=== PATIENT | female | born 1990 | race Caucasian/White ===

== ENCOUNTER 2019-02-08 14:52 | Inpatient (IN) ==
[2019-02-08] MEDS ORDERED: LACTATED RINGER'S 1,000 ML IV PRN ×3 (15:46→21:38)
[2019-02-08] MEDS ORDERED: OXYTOCIN 30 UNITS/500 ML BAG IV PRN ×2 (15:46→21:38)
[2019-02-08] MEDS: LACTATED RINGER'S 1,000 ML IV SCH ×2 (16:02→17:02)
[2019-02-08] MEDS ORDERED: ePHEDrine sulfate 50 MG/ML AMP ONE (16:08)
[2019-02-08] MEDS ORDERED: BUPIVACAINE 0.25% 30 ML VIAL ONE (16:08)
[2019-02-08] MEDS ORDERED: fentaNYL citrate 100 MCG/2 ML VIAL ONE (16:08)
[2019-02-08] MEDS ORDERED: fentaNYL 2MCG/ML ROPIV 1.25MG/ML 100 ML BAG EPI ONE (16:09)
[2019-02-08 16:16] LABS: Hematocrit (blood only) 37.7 % (37-47); Hemoglobin 12.7 g/dL (12.0-16.0); Mean Corpuscular Volume 86.7 fL (80-100); Mean Platelet Volume 10.4 fL (7.4-10.4); Platelet Count 202 K/uL (130-400); RDW Coefficient of Variation 13.7 % (11.5-14.5); RDW Standard Deviation 43.1 fL (36.4-46.3); Red Blood Count 4.35 M/uL (4.2-5.4); White Blood Count 13.64 K/uL (4.8-10.8)
[2019-02-08 16:23] LABS: Mean Corpuscular Hgb Conc 33.7 g/dL (32-36)
--- NOTE | 2019-02-08 16:34 | Anesthesiology Consultation ---
Date of Service February 08, 2019 Assessment & Plan Chart Review Chart Review: Patient NOT seen in Pre Admission Testing and Acceptable Risk for Labor Epidural Consults Requested none ASA ASA2 Proposed Anesthesia Anesthesia Type: Labor Epidural and CSE Risk / Benefits Reviewed With: PT / POA / Parent / Guardian, Accepts Plan and Informed Consent Obtained NPO Date Last Intake of Fluids: 02/08/19 Time Last Intake of Fluids: 14:00 Date Last Intake of Solids: 02/08/19 Time Last Intake of Solids: 13:30 History Height/Weight Height: 5 ft 2 in Weight: 84.368 kg Past Anesthesia History No Hx of Anesthesia Complications and No Family Hx of Anesthesia Complications History of PONV No Motion Sickness Screening History of Motion Sickness: No Social History Smoking Status: Never smoker Do You Dip or Chew Tobacco: No Hx Alcohol Use: No Hx Substance Use: No substance use type: does not use Exercise / Class Metabolic Activity II 4-5 Yardwork/Stairs/Walk up hill Review of Systems no chest pain or sob Physical Exam Vital Signs Last Vital Signs Temp 36.6 C 02/08/19 15:16 Pulse 91 H 02/08/19 16:30 Resp 18 02/08/19 15:16 BP 125/83 02/08/19 16:17 Pulse Ox 100 02/08/19 16:30 ENMT Mouth: no TMJ abnormality Thyromental Distance: > or= 3.5 Finger Breadths Mallampati Class: II Neck normal visual inspection Respiratory normal respiratory effort Auscultation: lungs clear to auscultation bilaterally Cardiovascular Rate/Rhythm: regular rate and regular rhythm Musculoskeletal Spine: normal cervical ROM Neurologic moves all extremities Psychiatric Orientation: alert and oriented x 3 Testing Electrocardiogram Findings: + NSR @ Laboratory Results 02/08/19 16:03
[2019-02-08] MEDS ORDERED: NALOXONE HCL 0.4 MG/1 ML VIAL/CARP IV PRN (16:50)
[2019-02-08] MEDS ORDERED: NALBUPHINE HCL INJ 10 MG/ML AMP IV PRN (16:50)
[2019-02-08] MEDS ORDERED: fentaNYL 2MCG/ML ROPIV 1.25MG/ML 100 ML BAG EPI PRN (16:50)
[2019-02-08] MEDS ORDERED: DiphenhydrAMINE HCL 50 MG/ML VIAL IV PRN (16:50)
[2019-02-08] MEDS ORDERED: ePHEDrine sulfate 50 MG/ML AMP IV PRN (16:50)
[2019-02-08] MEDS ORDERED: NALOXONE HCL 1 MG in SODIUM CHLORIDE 0.9% 1000ML 1,000 ML IV PRN (16:50)
[2019-02-08] MEDS ORDERED: ONDANSETRON INJ 2 MG/ML 2 ML VIAL IV PRN (16:50)
--- NOTE | 2019-02-08 17:54 | History & Physical Report ---
Date of Service February 08, 2019 Assessment & Plan (1) 40 weeks gestation of : (2) Normal labor: already has epidural. fetus category one. expectant management for now. pit as indicated. Anticipate . History of Present Illness Chief Complaint: contractions and lof Primary Care Provider: NO PCP Patient is a 28yowf with iup at 40 1/7 weeks who presents complaining of lof, clear, at about 2pm and contractions. no vb. +fm. uncomplicated labs--A+/ab-/papnl/ri/bharath i/rprnr/hiv neg/gc/ct-/16 week gtt 147, nl 2 hr gtt/ panorama low risk/afp neg/28 week 2 hr nl/ gbs neg Allergies Allergy/AdvReac Type Severity Reaction Status Date / Time No Known Allergies Allergy Unverified 02/08/19 16:58 Home Medications Home Medications Medication Instructions Recorded Confirmed Type vit-iron fum-folic ac 1 tab PO DAILY 02/08/19 02/08/19 History [ Vitamin] Patient History Medical History H/O varicella Surgical History No history of previous surgery Family History Grandfather (Paternal) Family history of diabetes mellitus Grandmother (Maternal) Family history of diabetes mellitus Social History Preferred Language: Chinese Communication Ability: Effective Surgical Aides Teacher Required: No Beliefs That Will Affect Care: None marital status: Current Living Situation: Spouse Other Information That Helps Us Care for You: No Feels Safe at Home: Yes Safety Concerns: Feels Safe At This Time Smoking Status: Never smoker Do You Dip or Chew Tobacco: No Second Hand Exposure: No Tobacco Cessation Education Requested by Patient: No Hx Alcohol Use: No Hx Substance Use: No 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 no std, no abnl paps Review of Systems All systems reviewed & are unremarkable except as noted in HPI & below Physical Exam Constitutional: WD/WN, vitals as above Gastrointestinal (Abdomen): soft, nt, nd Genitourinary: cx--/-2 on admission, just checked after epidural and 4-/-1 toco--q2min efm--145 with mod variability, accels to 150s, no decels Results & Data Vital Signs (Past 12 Hours) Vital Signs Temp Pulse Resp BP Pulse Ox 02/08/19 17:45 93 H 100 02/08/19 17:40 94 H 99 02/08/19 17:35 89 99 02/08/19 17:34 93 H 111/59 L 02/08/19 17:30 92 H 100 02/08/19 17:25 89 100 02/08/19 17:20 86 94 02/08/19 17:18 93 H 108/65 94 02/08/19 17:15 88 100 02/08/19 17:14 82 109/60 02/08/19 17:10 93 H 98 02/08/19 17:05 94 H 100 02/08/19 17:04 90 104/59 L 02/08/19 17:02 91 H 103/55 L 02/08/19 17:00 86 100 02/08/19 16:59 87 108/58 L 02/08/19 16:56 85 104/56 L 02/08/19 16:55 94 H 100 02/08/19 16:53 86 106/55 L 02/08/19 16:51 88 103/59 L 02/08/19 16:50 95 H 98/59 L 100 02/08/19 16:49 88 100/59 L 02/08/19 16:47 74 101/54 L 02/08/19 16:46 82 129/72 02/08/19 16:45 87 100 02/08/19 16:44 86 126/68 02/08/19 16:43 86 129/78 02/08/19 16:40 92 H 100 02/08/19 16:35 92 H 100 02/08/19 16:30 91 H 100 02/08/19 16:25 91 H 100 02/08/19 16:20 84 100 02/08/19 16:17 82 125/83 02/08/19 15:16 98 F 18 02/08/19 15:03 108 H 129/91
--- NOTE | 2019-02-08 19:41 | Labor Progress Brief Note ---
Date of Service February 08, 2019 Subjective Comfortable, no pressure Genitourinary (Female): + problem reported Assessment & Plan (1) 40 weeks gestation of : (2) Normal labor: fetus category one. expectant management for now. pit as indicated. Anticipate . Physical Exam Constitutional: WD/WN, vitals as above Gastrointestinal (Abdomen): cx--ant lip/0 toco--q2min efm--155 wtih mod variability, accels to 170s, no decels Results & Data Vital Signs (Past 12 Hours) Vital Signs Temp Pulse Resp BP Pulse Ox 02/08/19 19:36 90 137/77 02/08/19 19:35 99 H 100 02/08/19 19:30 92 H 100 02/08/19 19:29 98.6 F 18 02/08/19 19:25 93 H 99 02/08/19 19:20 99 H 100 02/08/19 19:19 94 H 140/80 02/08/19 19:15 98 H 100 02/08/19 19:10 97 H 100 02/08/19 19:09 93 H 91 02/08/19 19:05 102 H 100 02/08/19 19:04 90 131/72 02/08/19 19:00 96 H 100 02/08/19 18:55 96 H 100 02/08/19 18:50 94 H 135/90 100 02/08/19 18:45 94 H 100 02/08/19 18:40 98 H 100 02/08/19 18:35 95 H 100 02/08/19 18:34 99 H 138/83 02/08/19 18:30 82 100 02/08/19 18:25 96 H 100 02/08/19 18:20 96 H 119/68 100 02/08/19 18:16 93 H 112/74 02/08/19 18:15 94 H 100 02/08/19 18:11 86 90 02/08/19 18:10 85 100 02/08/19 18:05 90 97 02/08/19 18:00 97 H 18 100 02/08/19 17:55 101 H 100 02/08/19 17:50 115 H 100 02/08/19 17:49 93 H 116/63 02/08/19 17:45 93 H 100 02/08/19 17:40 94 H 99 02/08/19 17:35 89 99 02/08/19 17:34 93 H 111/59 L 02/08/19 17:30 92 H 20 100 02/08/19 17:25 89 100 02/08/19 17:20 86 94 02/08/19 17:18 93 H 108/65 94 02/08/19 17:15 88 100 02/08/19 17:14 82 109/60 02/08/19 17:10 93 H 98 02/08/19 17:05 94 H 100 02/08/19 17:04 90 104/59 L 02/08/19 17:02 91 H 103/55 L 02/08/19 17:00 86 18 100 02/08/19 16:59 87 108/58 L 02/08/19 16:56 85 104/56 L 02/08/19 16:55 94 H 100 02/08/19 16:53 86 106/55 L 02/08/19 16:51 88 103/59 L 02/08/19 16:50 95 H 98/59 L 100 02/08/19 16:49 88 100/59 L 02/08/19 16:47 74 101/54 L 02/08/19 16:46 82 129/72 02/08/19 16:45 87 100 02/08/19 16:44 86 126/68 02/08/19 16:43 86 129/78 02/08/19 16:40 92 H 100 02/08/19 16:35 92 H 100 02/08/19 16:30 97.3 F L 91 H 20 100 02/08/19 16:25 91 H 100 02/08/19 16:20 84 100 02/08/19 16:17 82 125/83 02/08/19 15:16 98 F 18 02/08/19 15:03 108 H 129/91 02/08/19 15:01 98.1 F 18
[2019-02-08] MEDS ORDERED: IBUPROFEN 600 MG TAB PO PRN (22:14)
[2019-02-08] MEDS ORDERED: OXYCODONE/ACETAMINOPHEN 5mg/325mg TAB PO PRN (22:14)
[2019-02-09] MEDS ORDERED: HYDROCORTISONE ACETATE 25 MG SUPP PR PRN (02:55)
[2019-02-09] MEDS ORDERED: ACETAMINOPHEN 325 MG TAB PO PRN (02:55)
[2019-02-09] MEDS ORDERED: SUPERCREAM 0.870% 15 GM JAR EXT PRN (02:55)
[2019-02-09] MEDS ORDERED: BENZOCAINE 20% AER SPR 82.5 GM CAN EXT PRN (02:55)
[2019-02-09] MEDS ORDERED: OXYTOCIN 30 UNITS/500 ML BAG IV PRN (02:55)
[2019-02-09] MEDS ORDERED: BISACODYL 10 MG SUPP PR PRN (02:55)
--- NOTE | 2019-02-09 03:00 | Delivery Summary ---
DATE OF OPERATION: 02/08/2019 ADMISSION DIAGNOSES: 1. Intrauterine at 40+ weeks. 2. Active labor with rupture of membranes. POSTOPERATIVE DIAGNOSES: 1. Intrauterine at 40+ weeks. 2. Active labor with rupture of membranes. PROCEDURES: 1. Epidural anesthesia. 2. Normal spontaneous vaginal delivery. 3. Bilateral labia and first-degree vaginal laceration with repair. SURGEON: Linnea Adan MD ANESTHESIA: Epidural. ESTIMATED BLOOD LOSS: 300 mL. DESCRIPTION OF PROCEDURE: The patient presented to labor and delivery, grossly ruptured for clear fluid and active labor at 3+ cm dilated. She underwent an epidural anesthetic and progressed spontaneously to complete-complete and +2 station. She pushed for a little over an hour to deliver a viable female in HUBERT presentation. There was no nuchal cord. The nose and mouth were bulb suctioned. The rest of the infant was then delivered without difficulty. The infant's nose and mouth were again bulb suctioned and the was placed on the maternal abdomen for drying and attention. Cord was clamped and cut at 1 minute of life. Placenta was delivered spontaneously intact with a 3-vessel cord. Cord blood was obtained. Bilateral labial lacerations were repaired with several interrupted sutures of 4-0 and 3-0 Vicryl and a first-degree vaginal laceration was repaired with 3-0 Vicryl in normal standard fashion. Cervix, sulci, rectum, and perineum were examined and found to be intact. Estimated blood loss 300 mL. Hemostasis was obtained with dilute Pitocin and fundal massage. Apgars were 8 and 9. Mother and baby doing well at the end of the delivery. I attest to the content of the Intraoperative Record and any orders documented therein. Any exception s are noted below.
[2019-02-09 06:53] LABS: Hematocrit (blood only) 34.2 % (37-47); Hemoglobin 11.2 g/dL (12.0-16.0); Mean Corpuscular Hgb Conc 32.7 g/dL (32-36); Mean Platelet Volume 10.5 fL (7.4-10.4); Platelet Count 175 K/uL (130-400); RDW Coefficient of Variation 14.1 % (11.5-14.5); RDW Standard Deviation 44.8 fL (36.4-46.3); Red Blood Count 3.93 M/uL (4.2-5.4); White Blood Count 15.35 K/uL (4.8-10.8)
--- NOTE | 2019-02-09 06:57 | Obstetrical Progress Note ---
Date of Service <Bethany Turner MD - Last Filed: 02/09/19 07:01> February 09, 2019 Assessment & Plan <Bethany Turner MD - Last Filed: 02/09/19 07:01> (1) (spontaneous vaginal delivery): 28yo with at 40.1 weeks. PPD #1 -Routine care -ambulation encouraged -Pain control -Doing well Day #:: 1 Subjective <Bethany Turner MD - Last Filed: 02/09/19 07:01> Ambulation: ambulating normally Voiding: no voiding problems Diet Tolerance:: regular diet Lochia:: Moderate Feeding Type:: breast feeding Current Pain Level(1-10): 1 Respiratory: no dyspnea Cardiovascular: + edema; no chest pain, no palpitations, no lightheadedness and no calf pain Gastrointestinal: no nausea and no vomiting Genitourinary (female): no dysuria Neurologic: no headache(s) Physical Exam <Bethany Turner MD - Last Filed: 02/09/19 07:01> Vital Signs (Past 24 Hours) Last Vital Signs Temp 36.9 C 02/09/19 04:55 Pulse 87 02/09/19 04:55 Resp 18 02/09/19 04:55 BP 121/78 02/09/19 04:55 Pulse Ox 99 02/08/19 22:05 Respiratory normal respiratory effort, lungs clear to auscultation Cardiovascular Rate/Rhythm: regular rate and regular rhythm Extremities: + pedal edema; no calf tenderness Genitourinary OB Exam Abdomen: + fundal height Fundus: + firm Results & Data <Bethany Turner MD - Last Filed: 02/09/19 07:01> Laboratory Results Laboratory Results - last 24 hr 02/08/19 02/09/19 16:03 06:18 WBC 13.64 H 15.35 H RBC 4.35 3.93 L Hgb 12.7 11.2 L Hct 37.7 34.2 L MCV 86.7 87.0 MCH 29.2 28.5 MCHC 33.7 32.7 RDW Std Deviation 43.1 44.8 RDW Coeff of Kristina 13.7 14.1 Plt Count 202 175 MPV 10.4 10.5 H Medications Administered Home Medications vit-iron fum-folic ac [ Vitamin] 1 tab PO DAILY 02/08/19 [History Confirmed 02/08/19] Active Medications Acetaminophen (Tylenol) 650 mg PO Q6H PRN PRN Reason: Pain/SANCHEZ/Fever Stop: 03/11/19 02:54 Benzocaine (Dermoplast Pain Relieving [place]) 1 appln EXT PRN PRN PRN Reason: Perineal Discomfort Stop: 03/11/19 02:54 Bisacodyl (Dulcolax) 5 mg PO 1999 [facility] Stop: 02/09/19 20:01 Bisacodyl (Dulcolax) 10 mg CO DAILY PRN PRN Reason: No BM on 2nd post- day Stop: 03/11/19 02:54 Cocaine HCl (Supercream 0.870%) 1 gm EXT BID PRN PRN Reason: Hemorrhoidal Inflammation Stop: 02/23/19 02:54 Diphtheria/Pertussis/Tetanus Vacc (Adacel) 0.5 ml IM .ONCE ONE Stop: 02/10/19 09:01 Docusate Sodium (Colace) 100 mg PO BID [facility] Stop: 03/11/19 08:59 Hydrocortisone (Anusol Hc) 25 mg CO BID PRN PRN Reason: Hemorrhoidal Inflammation Stop: 03/11/19 02:54 Oxytocin (Pitocin) 30 units in 500 mls @ 333.333 mls/hr IV .Q1H30M PRN; Protocol PRN Reason: BLEEDING CONTROL Stop: 03/11/19 02:54 Ibuprofen (Motrin) 600 mg PO Q4H PRN PRN Reason: Pain/SANCHEZ/Cramping/Fever Stop: 03/10/19 22:13 Oxycodone/Acetaminophen (Percocet 5mg/325mg) 1 tab PO Q4H PRN PRN Reason: Pain not relieved by... Stop: 02/22/19 22:13 Prenat Multivit/[place]/Iron/Folic Ac ( Vitamin) 1 tab PO QAM [facility] Stop: 03/11/19 08:59 <Linnea Adan MD, FACOG - Last Filed: 02/09/19 07:11> Co-Signing Physician Notes Resident Physician Supervision Note: I interviewed and examined the patient. Discussed with Dr. Turner and agree with findings and plan as documented in the note. Any exceptions or clarifications are listed here: Doing well. Fundus firm, 1 below u. Routine PP care. Documented By: Linnea Adan MD, FACOG
--- NOTE | 2019-02-09 08:59 | Anesthesia Procedure Note ---
Date of Service February 09, 2019 Anesthesia Post Epidural Note Vital Signs Vital Signs: Temp Pulse Resp BP Pulse Ox 36.9 C 87 18 121/78 99 02/09/19 04:55 02/09/19 04:55 02/09/19 04:55 02/09/19 04:55 02/08/19 22:05 Notes Mental Status: alert / awake / arousable Patient Amnestic to Procedure: Yes Nausea / Vomiting: adequately controlled Pain: adequately controlled Airway Patency, RR, SpO2: stable & adequate BP & HR: stable & adequate Hydration State: stable & adequate Anesthetic Complications: no major complications apparent
[2019-02-09] MEDS: PRENATAL VITAMIN 1 TAB PO SCH (09:59)
[2019-02-09] MEDS: DOCUSATE SODIUM 100 MG CAP PO SCH ×2 (10:00→21:20)
[2019-02-09] MEDS ORDERED: BISACODYL 5 MG TABEC PO SCH (20:00)
[2019-02-10 06:52] LABS: Hemoglobin 11.4 g/dL (12.0-16.0)
--- NOTE | 2019-02-10 07:54 | Obstetrical Progress Note ---
Date of Service <Bethany Turner MD - Last Filed: 02/10/19 08:12> February 10, 2019 Assessment & Plan <Bethany Turner MD - Last Filed: 02/10/19 08:12> (1) (spontaneous vaginal delivery): 28yo with at 40.1 weeks. PPD #2 -Doing well -Discharge today, discharge instructions reviewed. Subjective <Bethany Turner MD - Last Filed: 02/10/19 08:12> Ambulation: ambulating normally Voiding: no voiding problems Diet Tolerance:: regular diet Lochia:: Small Feeding Type:: breast feeding Current Pain Level(1-10): 1 Eyes: no problem reported Respiratory: no dyspnea Cardiovascular: no chest pain, no palpitations, no lightheadedness and no calf pain Gastrointestinal: no nausea and no vomiting Neurologic: no headache(s) Physical Exam <Bethany Turner MD - Last Filed: 02/10/19 08:12> Vital Signs (Past 24 Hours) Last Vital Signs Temp 36.7 C 02/10/19 07:30 Pulse 88 02/10/19 07:30 Resp 20 02/10/19 07:30 BP 116/77 02/10/19 07:30 Pulse Ox 98 02/09/19 12:10 Respiratory normal respiratory effort, lungs clear to auscultation Cardiovascular Rate/Rhythm: regular rate and regular rhythm Genitourinary OB Exam Abdomen: + fundal height Fundus: + firm and + relation to umbilicus (at umbilicus) Results & Data <Bethany Turner MD - Last Filed: 02/10/19 08:12> Laboratory Results Laboratory Results - last 24 hr 02/10/19 06:11 Hgb 11.4 L Hct 35.0 L Medications Administered Home Medications vit-iron fum-folic ac [ Vitamin] 1 tab PO DAILY 02/08/19 [History Confirmed 02/08/19] Active Medications Acetaminophen (Tylenol) 650 mg PO Q6H PRN PRN Reason: Pain/SANCHEZ/Fever Stop: 03/11/19 02:54 Benzocaine (Dermoplast Pain Relieving [place]) 1 appln EXT PRN PRN PRN Reason: Perineal Discomfort Stop: 03/11/19 02:54 Bisacodyl (Dulcolax) 10 mg MD DAILY PRN PRN Reason: No BM on 2nd post- day Stop: 03/11/19 02:54 Cocaine HCl (Supercream 0.870%) 1 gm EXT BID PRN PRN Reason: Hemorrhoidal Inflammation Stop: 02/23/19 02:54 Diphtheria/Pertussis/Tetanus Vacc (Adacel) 0.5 ml IM .ONCE ONE Stop: 02/10/19 09:01 Docusate Sodium (Colace) 100 mg PO BID [facility] Stop: 03/11/19 08:59 Last Admin: 02/09/19 21:20 Dose: 100 mg Documented by: Hydrocortisone (Anusol Hc) 25 mg MD BID PRN PRN Reason: Hemorrhoidal Inflammation Stop: 03/11/19 02:54 Oxytocin (Pitocin) 30 units in 500 mls @ 333.333 mls/hr IV .Q1H30M PRN; Protocol PRN Reason: BLEEDING CONTROL Stop: 03/11/19 02:54 Ibuprofen (Motrin) 600 mg PO Q4H PRN PRN Reason: Pain/SANCHEZ/Cramping/Fever Stop: 03/10/19 22:13 Last Admin: 02/09/19 17:48 Dose: 600 mg Documented by: Oxycodone/Acetaminophen (Percocet 5mg/325mg) 1 tab PO Q4H PRN PRN Reason: Pain not relieved by... Stop: 02/22/19 22:13 Prenat Multivit/[place]/Iron/Folic Ac ( Vitamin) 1 tab PO QAM [facility] Stop: 03/11/19 08:59 Last Admin: 02/09/19 09:59 Dose: 1 tab Documented by: <Twila Ramsey MD, FACOG - Last Filed: 02/10/19 08:14> Co-Signing Physician Notes Resident Physician Supervision Note: I interviewed and examined the patient. Discussed with Dr. Sims and agree with findings and plan as documented in the note. Any exceptions or clarifications are listed here: [None] Documented By: Twila Ramsey MD, FACOG
[2019-02-10] MEDS: DOCUSATE SODIUM 100 MG CAP PO SCH (08:37)
[2019-02-10] MEDS: PRENATAL VITAMIN 1 TAB PO SCH (08:37)
[2019-02-10] MEDS ORDERED: DIPHTHERIA/TETANUS/PERTUSSIS 0.5 ML SYR/VIAL IM ONE (09:00)
--- OUTSIDE RECORDS SUMMARY | 2019-02-12 21:37 | External Medical Summary | Continuity of Care Document ---
:1990 Author Name Bacilio Blackburn, Provider Address Unavailable Unavailable , Care Team Providers Name Role Phone Antionette Blackburn, Linnea Chi Unavailable [email or web address] [email or web address], UNKNOWN Unavailable Unavailable Unavailable Unavailable Unavailable Problems Supervision of normal first in third trimester (V2 2.0) (Z34.03) Allergies and Adverse Reactions No Known Drug Allergies (Allergy) Medications TABS Refills: 0 Procedures Non-stress test Date: 06-Feb-2019 History of no history of surgery Status: Completed Immunizations Tdap (Adacel) On: 17-Nov-2018 9:56 Lot #: [id number], [employer] Family History Mother Family history of factor V Leiden mutation (V18.3) (Z83.2) S tatus: Active Family history of hypertension (V17.49) (Z82.49) Status: Act tsering Grandmother Family history of diabetes mellitus (V18.0) (Z83.3) Status: Active Grandfather Family history of diabetes mellitus (V18.0) (Z83.3) Status: Active Sister Family history of deep venous thrombosis (V17.49) (Z82.49) S tatus: Active Plan of Treatment Planned Observations Planned Goals not documented Results Group B Strep/CHIN 15-Jan-2019 11:55 GRP B BETA STREP CULTURE - CHIN ORDERED P ROCEDURE : GRP B Beta Strep Culture -CHIN; Speciment : V aginal/Rectal Source of Specimen: Vaginal/ Rectal Group B St rep Culture : No Group B Strep isolated Vital Signs 06-Feb-2019 11:41 Systolic 124 mm[Hg] Diastolic 74 mm[Hg] Height 62 in BSA Calculated 1.85 m2 BMI Calculated 33.98 kg/m2 Weight 185.8 lb 29-Jan-2019 14:31 Systolic 118 mm[Hg] Diastolic 84 mm[Hg] Height 62 in BSA Calculated 1.84 m2 BMI Calculated 33.51 kg/m2 Weight 183.2 lb 23-Jan-2019 11:42 Systolic 122 mm[Hg] Diastolic 84 mm[Hg] Height 62 in BSA Calculated 1.83 m2 BMI Calculated 32.95 kg/m2 Weight 180.125 lb 15-Jan-2019 8:58 Systolic 126 mm[Hg] Diastolic 84 mm[Hg] Height 62 in BSA Calculated 1.81 m2 BMI Calculated 32.3 kg/m2 Weight 176.6 lb Encounters Appointment; Kate Young M.D. 06-Feb-2019 11:50 Encounter Diagnosis: Problem not documented Appointment; Kate Young M.D. 29-Jan-2019 14:30 Encounter Diagnosis: Problem not documented Appointment; Kd Delcid M.D. 23-Jan-2019 11:50 Encounter Diagnosis: Problem not documented Appointment; Anatoly Foreman M.D. 15-Jan-2019 9:00 Encounter Diagnosis: Problem not documented Appointment; Anatoly Foreman M.D. 29-Dec-2018 8:20 Encounter Diagnosis: Problem not documented Appointment; Nakia Gonzalez M.D. 08-Dec-2018 13:10 Encounter Diagnosis: Problem not documented Appointment; Twila Ramsey M.D. 17-Nov-2018 9:20 Encounter Diagnosis: Problem not documented Appointment; Twila Ramsey M.D. 20-Oct-2018 11:20 Encounter Diagnosis: Problem not documented Appointment; OBANNELISE ADKINS1, Ultrasound 20-Oct-2018 10:30 Encounter Diagnosis: Problem not documented Appointment; Anatoly Foreman M.D. 15-Sep-2018 9:10 Encounter Diagnosis: Problem not documented Appointment; OBGYN SC2, Ultrasound 15-Sep-2018 8:05 Encounter Diagnosis: Problem not documented Appointment; OB SC1, Procedure Rm 17-Aug-2018 8:20 Encounter Diagnosis: Problem not documented Appointment; Comfort Mays DO 17-Aug-2018 8:20 Encounter Diagnosis: Problem not documented Appointment; OB SC1, Nursing Station 11-Aug-2018 9:45 Encounter Diagnosis: Problem not documented Appointment; Steph Tran CRNP 02-Aug-2018 13:30 Encounter Diagnosis: Problem not documented Appointment; [id number], Nurse 02-Aug-2018 13:00 Encounter Diagnosis: Problem not documented
== END 2019-02-10 14:10 | disposition home or self-care (01) | DRG 807 ==
LOC: OPB 14:52 → 4S1 14:55 → 4S2 02-09 00:52

== ENCOUNTER 2021-03-02 05:18 | Inpatient (IN) ==
[2021-03-02] MEDS ORDERED: PENICILLIN G POTASSIUM 6 MU in DEXTROSE 5% 250 ML IV STA (05:45)
[2021-03-02] MEDS ORDERED: PENICILLIN G POTASSIUM 3 MU in DEXTROSE 5% 100 ML IV PRN (05:45)
[2021-03-02] MEDS ORDERED: OXYTOCIN 30 UNITS/500 ML BAG IV PRN ×2 (05:45→09:02)
[2021-03-02] MEDS ORDERED: LACTATED RINGER'S 1,000 ML IV PRN (05:45)
[2021-03-02 06:01] LABS: Hematocrit (blood only) 39.7 % (37-47); Hemoglobin 12.9 g/dL (12.0-16.0); Mean Corpuscular Hemoglobin 29.7 pg (25-34); Mean Corpuscular Hgb Conc 32.5 g/dL (32-36); Mean Corpuscular Volume 91.3 fL (80-100); Mean Platelet Volume 10.2 fL (7.4-10.4); Platelet Count 196 K/uL (130-400); RDW Coefficient of Variation 13.7 % (11.5-14.5); RDW Standard Deviation 45.4 fL (36.4-46.3); Red Blood Count 4.35 M/uL (4.2-5.4); White Blood Count 12.05 K/uL (4.8-10.8)
--- NOTE | 2021-03-02 06:03 | History & Physical Report ---
Date of Service March 02, 2021 Assessment & Plan (1) Active labor at term: (2) PUPP (pruritic urticarial papules and plaques of ): (3) Group B streptococcal carriage complicating : admit, iv, labs. fhts categ 1. begin pcn for gbs pos. expectant mgmt. epidural when desires. will provide topical steroid for rash. per chart, desires to restart lexapro pp. Admission and Anticipated Discharge Date Admission Date: March 02, 2021 History of Present Illness Chief Complaint: regular ctx. Primary Care Provider: Laura Howard MD 30yo at 38+weeks ega presents to L&D with regular ctx. Contractions overnight increasing in intensity. No rom. No vb. +FM. Has new onset rash on upper thigh and abdomen. Pruritic PNC c/b 1. GBS pos 2. PUPPS 3. history of depression, weaned off lexapro, plans to return to lexapro pp PNL rh pos, Ri, gbs pos OBH: x 1 GYNH: nl paps. Allergies Allergy/AdvReac Type Severity Reaction Status Date / Time No Known Allergies Allergy Verified 03/02/21 05:30 Home Medications Medication Instructions Recorded Confirmed Type Vitamin 1 tab PO DAILY 02/08/19 03/02/21 History breast pump #1 ea 02/24/21 02/24/21 Rx Patient History Medical History (Updated 03/02/21 @ 06:19 by Nakia Gonzalez MD, FACOG) Anxiety and depression Cervical cancer screening H/O varicella Vaginal delivery Surgical History No history of previous surgery Family History Grandfather (Paternal) Family history of diabetes mellitus Grandmother (Maternal) Family history of diabetes mellitus Social History (Updated 08/01/20 @ 11:52 by Yesenia Minor) Smoking Status: Never smoker Second Hand Exposure: No; Hx Alcohol Use: No Hx Substance Use: No Preferred Language: Albanian Communication Ability: Effective Food Order Delivery Runner Required: No Beliefs That Will Affect Care: None marital status: marital status details: Dani (30) [phone] Current Living Situation: Spouse and Family Current Living Situation Comment: patient's in the process of building a home; currently in [facility] current occupational status: employed 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 @ [employer] Other Information That Helps Us Care for You: No Feels Safe at Home: Yes Safety Concerns: Feels Safe At This Time Assistive Devices: None Physical Exam Constitutional: WD/WN, vitals as above Respiratory: normal respiratory effort, lungs clear to auscultation Cardiovascular: Rate/Rhythm: regular rate and regular rhythm Gastrointestinal (Abdomen): soft gravid nt EFW 7.5# Musculoskeletal: no edema nontender calves Skin: + rash (papular rash on abdomen and upper thigh) Neurologic: grossly normal Psychiatric: A+Ox3, euthymic affect Genitourinary: Manual OB Exam: + cervical dilation 5 cm, + cervical effacement 100% and + station -2 OB Exam Monitor Tracing: + external FHT monitor used (130 mod variability), + external uterine monitor used (q3), + category I and + normal FHT variability cervical exam per nurse Results & Data ([facility]) Vital Signs (Past 12 Hours) Vital Signs Pulse BP 03/02/21 05:28 81 108/68 Coding Level of Care Code None Diagnoses Active labor at term PUPP (pruritic urticarial papules and plaques of ) O26.86 Group B streptococcal carriage complicating O99.820
[2021-03-02] MEDS ORDERED: HYDROCORTISONE VAL 0.2% CRM 15GM TUBE EXT PRN (06:20)
[2021-03-02] MEDS ORDERED: SODIUM CHLORIDE 0.9% INJ 10 ML VIAL ONE (06:50)
[2021-03-02] MEDS ORDERED: BUPIVACAINE 0.25% 30 ML VIAL ONE (06:50)
[2021-03-02] MEDS ORDERED: ePHEDrine sulfate 50 MG/ML AMP ONE (06:50)
[2021-03-02] MEDS ORDERED: fentaNYL citrate 100 MCG/2 ML VIAL ONE (06:50)
[2021-03-02] MEDS ORDERED: fentaNYL 2MCG/ML ROPIVACAINE 1.25MG/ML 100 ML BAG EPI ONE (06:51)
[2021-03-02] MEDS ORDERED: NALOXONE HCL 0.4 MG/1 ML VIAL/CARP IV PRN (06:54)
[2021-03-02] MEDS ORDERED: ONDANSETRON INJ 2 MG/ML 2 ML VIAL IV PRN (06:54)
[2021-03-02] MEDS ORDERED: NALOXONE HCL 1 MG in SODIUM CHLORIDE 0.9% 1000ML 1,000 ML IV PRN (06:54)
[2021-03-02] MEDS ORDERED: ePHEDrine sulfate 50 MG/ML AMP IV PRN (06:54)
[2021-03-02] MEDS ORDERED: diphenhydrAMINE 50 MG/ML VIAL IV PRN (06:54)
[2021-03-02] MEDS ORDERED: fentaNYL 2MCG/ML ROPIVACAINE 1.25MG/ML 100 ML BAG EPI PRN (06:54)
--- NOTE | 2021-03-02 06:59 | Anesthesiology Consultation ---
Date of Service March 02, 2021 Assessment & Plan (1) Encounter for pre-operative examination: Chart Review Chart Review: Acceptable Risk for Labor Epidural Consults Requested none ASA ASA2 Proposed Anesthesia Anesthesia Type: Labor Epidural Risk / Benefits Reviewed With: PT / POA / Parent / Guardian, Accepts Plan and Informed Consent Obtained History Height/Weight Height: 5 ft 2 in Weight: 80.286 kg Allergies Allergy/AdvReac Type Severity Reaction Status Date / Time No Known Allergies Allergy Verified 03/02/21 05:30 Medications Home Medications Medication Instructions Recorded Confirmed Last Taken Vitamin 1 tab PO DAILY 02/08/19 03/02/21 03/01/21 08:30 breast pump #1 ea 02/24/21 02/24/21 Unknown Active Medications Generic Name Dose Route Start Last Admin Trade Name Freq PRN Reason Stop Dose Admin Lactated Ringer's 1,000 mls @ 125 mls/hr 03/02/21 05:45 03/02/21 06:30 Lr IV 03/04/21 05:44 125 mls/hr .Q8H PRN Infusion L&D Protocol Protocol Past Medical History Medical History Anxiety and depression Cervical cancer screening H/O varicella Vaginal delivery Exercise / Class Metabolic Activity II 4-5 Yardwork/Stairs/Walk up hill Past Family History Family History Grandfather (Paternal) Family history of diabetes mellitus Grandmother (Maternal) Family history of diabetes mellitus Past Surgical History Surgical History No history of previous surgery Past Anesthesia History No Hx of Anesthesia Complications and No Family Hx of Anesthesia Complications History of PONV No Hx of PONV and No Hx of Motion Sickness Social History Smoking Status: Never smoker Hx Alcohol Use: No Hx Substance Use: No substance use type: does not use Physical Exam Vital Signs Last Vital Signs Temp 98.1 F 03/02/21 05:32 Pulse 81 03/02/21 05:32 Resp 18 03/02/21 05:32 BP 108/68 03/02/21 05:32 ENMT Mouth: no dentition abnormality Thyromental Distance: > or= 3.5 Finger Breadths Mallampati Class: II Neck normal visual inspection Respiratory normal respiratory effort Auscultation: lungs clear to auscultation bilaterally Cardiovascular Rate/Rhythm: regular rate and regular rhythm Testing Laboratory Results 03/02/21 05:53
--- NOTE | 2021-03-02 08:44 | Delivery Summary ---
Vaginal Delivery Summary Date of Service March 02, 2021 Vaginal Delivery Summary The patient dilated to complete and pushed to deliver a viable female Apgars 9 and 9 via over intact perineum. Mouth and nose bulb suctioned at perineum. Shoulders and body delivered with ease. Infant was vigorous and crying at . Cord clamped at 30 seconds of life and infant to maternal abdomen where the cord was then doubly clamped and cut. Placenta delivered spontaneously and intact, three-vessel cord. Hemostasis achieved with dilute pitocin and uterine massage. Vaginal laceration reapproximated with 3-0 vicryl in one interrupted stitch. Cervix and sulci intact. EBL 300 cc. Mother and baby stable recovery. [facility] Vaginal Delivery Charge Delivery Type Details:
[2021-03-02] MEDS ORDERED: NON-FORMULARY MEDICATION (Prenatal Vit-Iron Fum-Folic Ac [Prenatal Vitamin] 27 mg iron- 0. PO SCH (09:02)
[2021-03-02] MEDS ORDERED: ACETAMINOPHEN 325 MG TAB PO PRN (09:02)
[2021-03-02] MEDS ORDERED: DIPHTHERIA/TETANUS/PERTUSSIS 0.5 ML SYR/VIAL IM ONE (09:02)
[2021-03-02] MEDS ORDERED: HYDROCORTISONE ACETATE 25 MG SUPP PR PRN (09:02)
[2021-03-02] MEDS ORDERED: oxyCODONE/ACETAMINOPHEN 5mg/325mg TAB PO PRN (09:02)
[2021-03-02] MEDS ORDERED: BENZOCAINE 20% AER SPR 82.5 GM CAN EXT PRN (09:02)
[2021-03-02] MEDS ORDERED: bisacodyL 10 MG SUPP PR PRN (09:02)
[2021-03-02] MEDS ORDERED: SUPERCREAM 0.870% 15 GM JAR EXT PRN (09:02)
--- NOTE | 2021-03-02 09:32 | Anesthesia Procedure Note ---
Date of Service March 02, 2021 Anesthesia Post Epidural Note Vital Signs Vital Signs: Temp Pulse Resp BP Pulse Ox 98.4 F 82 18 120/72 99 03/02/21 08:41 03/02/21 09:26 03/02/21 09:11 03/02/21 09:26 03/02/21 09:23 Pain Intensity Bilateral Lower Abdomen: Pain Intensity: 0 Notes Mental Status: alert / awake / arousable and participated in evaluation Nausea / Vomiting: adequately controlled Pain: adequately controlled Airway Patency, RR, SpO2: stable & adequate BP & HR: stable & adequate Hydration State: stable & adequate Neuraxial Anesthesia: was administered and sensory block is resolving Anesthetic Complications: no major complications apparent and Pt Satisfied with anesthetic care Epidural: Removed without complications and With tip intact
[2021-03-02] MEDS: ESCITALOPRAM OXALATE 10 MG TAB PO SCH (10:23)
[2021-03-02] MEDS: DOCUSATE SODIUM 100 MG CAP PO SCH (20:56)
--- NOTE | 2021-03-03 05:58 | Obstetrical Progress Note ---
Date of Service <Jamin Russo MD - Last Filed: 03/03/21 07:04> March 03, 2021 Assessment & Plan <Jamin Russo MD - Last Filed: 03/03/21 07:04> (1) state: 30 y/p s/p SVC at 38+ wks on 03/02/21 and is PPD1. GBS pos. A pos. RI. - meeting PP milestones - Hb appropriate, 12.1 - - continue topic creams for PUPP, stable - continue routine care plan: dispo roger because gbs pos incomplete tx, obs baby 48 hours (2) PUPP (pruritic urticarial papules and plaques of ): - stable, continue topical steroids (3) Anxiety and depression: - restarted Lexapro 10 Subjective <Jamin Russo MD - Last Filed: 03/03/21 07:04> Ambulation: ambulating normally Voiding: no voiding problems Passing Gas:: Yes Diet Tolerance:: regular diet Lochia:: Moderate Feeding Type:: breast feeding Current Pain Level(1-10): 2 Mood is pretty good. Some mild discomfort. Review of Systems Denies fever, chills, sweats Denies shortness of breath, chest pain, palpitations. Denies breast pain. Denies dysuria. Denies headache or changes in vision. Denies nausea/vomiting. Denies numbness, tingling, weakness. Physical Exam <Jamin Russo MD - Last Filed: 03/03/21 07:04> General: Alert, oriented. No acute distress. Cardiac: Regular rate and rhythm, no murmurs/rubs/gallops. Respiratory: Clear to auscultation bilaterally, no wheezes/rales/rhonchi. No respiratory distress. Abdomen: , soft, nontender. Uterus: Uterine fundus firm, palpable 1cm below umbilicus. Lower Extremities: No lower extremity edema or swelling. No deep calf pain. Chanda's negative bilaterally. Skin: Numerous papules at midabdomen. Results & Data ([facility]) <Jamin Russo MD - Last Filed: 03/03/21 07:04> Vital Signs (Past 12 Hours) Vital Signs Temp Pulse Resp BP 03/03/21 04:30 36.7 C 59 L 18 112/69 05/17/21 23:25 36.7 C 66 18 122/78 03/02/21 20:00 36.5 C 60 18 111/71 Medications Administered <Twila Ramsey MD, FACOG - Last Filed: 03/03/21 07:19> Co-Signing Physician Notes Resident Physician Supervision Note: I interviewed and examined the patient. Discussed with Dr. Russo and agree with findings and plan as documented in the note. Any exceptions or clarifications are listed here: [None] Documented By: Twila Ramsey MD, FACOG
[2021-03-03 06:49] LABS: Hematocrit (blood only) 36.7 % (37-47); Hemoglobin 12.1 g/dL (12.0-16.0); Mean Corpuscular Hemoglobin 29.7 pg (25-34); Mean Corpuscular Volume 90.2 fL (80-100); Mean Platelet Volume 10.3 fL (7.4-10.4); Platelet Count 162 K/uL (130-400); RDW Coefficient of Variation 13.9 % (11.5-14.5); RDW Standard Deviation 45.9 fL (36.4-46.3); Red Blood Count 4.07 M/uL (4.2-5.4); White Blood Count 10.75 K/uL (4.8-10.8)
[2021-03-03] MEDS: IBUPROFEN 600 MG TAB PO PRN ×2 (08:15→21:46)
[2021-03-03] MEDS: PRENATAL VITAMIN 1 TAB PO SCH (08:15)
[2021-03-03] MEDS: DOCUSATE SODIUM 100 MG CAP PO SCH ×2 (08:15→21:45)
[2021-03-03] MEDS: ESCITALOPRAM OXALATE 10 MG TAB PO SCH (08:15)
[2021-03-03] MEDS ORDERED: bisacodyL 5 MG TABEC PO SCH (20:00)
--- NOTE | 2021-03-04 05:47 | Obstetrical Progress Note ---
Date of Service <Jamin Russo MD - Last Filed: 03/04/21 07:41> March 04, 2021 Assessment & Plan <Jamin Russo MD - Last Filed: 03/04/21 07:41> (1) state: 30 y/p s/p at 38+ wks on 03/02/21 and is PPD2. GBS pos. A pos. RI. - meeting PP milestones - - continue topic creams for PUPP, stable - continue routine care - dispo today. d/c instructions reviewed. - 6 wk f/u in-office (2) PUPP (pruritic urticarial papules and plaques of ): - stable, continue topical steroids (3) Anxiety and depression: - restarted Lexapro 10 Subjective <Jamin Russo MD - Last Filed: 03/04/21 07:41> Ambulation: ambulating normally Voiding: no voiding problems Passing Gas:: Yes Diet Tolerance:: regular diet Lochia:: Small Feeding Type:: breast feeding Current Pain Level(1-10): 0 Review of Systems Denies fever, chills, sweats Denies shortness of breath, chest pain, palpitations. Denies breast pain. Denies dysuria. Denies headache or changes in vision. Denies nausea/vomiting. Denies numbness, tingling, weakness. No calf pain. Mood is ok. Physical Exam <Jamin Russo MD - Last Filed: 03/04/21 07:41> General: Alert, oriented. No acute distress. Cardiac: Regular rate and rhythm, no murmurs/rubs/gallops. Respiratory: Clear to auscultation bilaterally, no wheezes/rales/rhonchi. No respiratory distress. Abdomen: , soft, nontender. Uterus: Uterine fundus firm, palpable 1cm below umbilicus. Lower Extremities: Please see attending exam. Skin: Numerous papules at midabdomen. Results & Data ([facility]) <Jamin Russo MD - Last Filed: 03/04/21 07:41> Vital Signs (Past 12 Hours) Vital Signs Temp Pulse Resp BP 03/03/21 23:40 36.8 C 68 16 119/72 Medications Administered <Comfort Mays DO - Last Filed: 03/04/21 08:44> Co-Signing Physician Notes Resident Physician Supervision Note: I was present with Dr. Russo during the history and exam. I discussed the case with the resident and agree with the findings and plan as documented in the note. Any exceptions or clarifications are listed here: PPD#2 doing well. Reviewed DC instructions. Fol[place]owup 6w Documented By: Comfort Mays, Resident Activity Tracking <Jamin Russo MD - Last Filed: 03/04/21 07:41> Resident Involvement: Resident Care Provided Care Provided: OB Delivery
[2021-03-04 06:12] LABS: Hematocrit (blood only) 37.9 % (37-47); Hemoglobin 12.2 g/dL (12.0-16.0)
[2021-03-04] MEDS: DOCUSATE SODIUM 100 MG CAP PO SCH (08:07)
[2021-03-04] MEDS: PRENATAL VITAMIN 1 TAB PO SCH (08:07)
[2021-03-04] MEDS: ESCITALOPRAM OXALATE 10 MG TAB PO SCH (08:07)
== END 2021-03-04 11:30 | disposition home or self-care (01) | DRG 807 ==
LOC: OPB 05:18 → 4S1 05:21 → 4S2 11:00